=== PATIENT | male | born 1955 | race Caucasian/White ===

== ENCOUNTER 2017-04-28 08:34 | Outpatient (CLI) | payer BC ==
[2017-04-28 09:56] LABS: Hemoglobin 15.2 g/dL (14.0-18.0); Mean Corpuscular HGB CONC 33.1 g/dL (32.0-36.0); Mean Corpuscular Hemoglobin 31.9 pg (27.0-31.0); Mean Corpuscular Volume 96.4 fl (80.0-94.0); Platelet Count 125 thou/uL (130-400); RBC Distribution Width 12.3 % (11.5-14.5); Red Blood Cell (RBC) Count 4.78 mill/uL (4.70-6.10); White Blood Cell (WBC) Count 3.5 thou/uL (4.8-10.8)
[2017-04-28 09:59] LABS: Prothrombin Time 13.6 SEC (12.0-14.7)
[2017-04-28 10:00] LABS: PTT 30.9 SEC (22.9-36.1)
[2017-04-28 10:11] LABS: Anion Gap 12 mmol/L (10-20); BUN (Urea Nitrogen) 20 mg/dL (8.4-25.7); Calc. Creatinine Clearance 0 mL/min (70-130); Calcium 9.2 mg/dL (7.8-10.44); Carbon Dioxide 28 mmol/L (23-31); Chloride 106 mmol/L (98-107); Estimated GFR-MDRD 81; Glucose 88 mg/dL (80-115); Potassium 4.8 mmol/L (3.5-5.1); Sodium 141 mmol/L (136-145)
== END 2017-04-28 08:35 | disposition home or self-care (01) ==
LOC: LABBT 08:34
PROVIDERS: ATTEND Urology
DX: Z01.812 Encounter for preprocedural laboratory examination (principal); N21.0 Calculus in bladder
CPT/HCPCS: 80048; 85027; 85610; 85730

== ENCOUNTER 2017-04-29 06:02 | Day surgery (SDC) | payer BC ==
[2017-04-28 08:56] VITALS: BMI 31.8
[2017-04-29] MEDS ORDERED: Fentanyl 100 MCG/2 ML VIAL ONE (06:49)
[2017-04-29] MEDS ORDERED: CEFAZOLIN/Water 2 GM/20 ML SYRINGE ONE (07:24)
[2017-04-29] MEDS ORDERED: B & O ONE (08:38)
--- NOTE | 2017-04-29 09:08 | OP ---
DATE OF PROCEDURE: 04/29/2017 PREOPERATIVE DIAGNOSIS: Hematuria, bladder stones. POSTOPERATIVE DIAGNOSIS: Hematuria, bladder stones. PROCEDURE PERFORMED: Cystoscopy, laser lithotripsy and Ellik evacuation of numerous bladder stones a nd Beck catheter placement. SURGEON: Dr. Benji Hamilton ANESTHETIC: General. ESTIMATED BLOOD LOSS: Less than 50 mL DRAINS PLACED: A 20 Afghan Beck catheter with 20 mL in the balloon. FINDINGS: There are too numerous to count bladder stones, most of them less than 5 mm in size, but h e had 4 or 5 that were over 5 mm, largest probably about a cm in size. These were broken up with the laser and then all of these fragments were Elliked out. Other findings include no evidence of ureth ral stricture, very large trilobar BPH with intravesical growth, two ureteral orifices with clear eff lux which were visible with the rigid scope making a transurethral resection of his prostate possible in the future if needed. There was 1+ trabeculation, no evidence of bladder tumor, no foreign body or fistula, just numerous stones. OPERATIVE TECHNIQUE: After obtaining written and verbal consent from the patient after receiving IV antibiotics, he was taken to the operating suite. He was placed in the supine position on the [facility] ent table. PlexiPulses were placed on his lower extremities and turned on. He was given a general a nesthetic and oral obturator intubation. He was placed in the dorsal lithotomy position and sterilel y prepped and draped. Cystoscopy was performed with a 22-Afghan sheath. This was well lubricated an d passed under direct vision through the male urethra and into the urinary bladder with the aid of a 30-degree lens and video camera and monitor. The bladder was filled and emptied a number of times an d examined with both 30 and 70-degree lens. Using a 30-degree lens for guidance, we brought in a 500 microgram Holmium laser fiber and used to break up the larger of the stones and then we switched out to a 25-Afghan sheath which was replaced under direct vision with 30-degree lens and used the Ellik evacuator to Ellik evacuate the stones and stone fragments. We reinspected the bladder finding only a couple of smaller pieces remaining which we Elliked these out and then reinspected the bladder and did not see any further stones. At this point, the instruments were removed. Beck catheter was soha rilely inserted and inflated with 20 mL, was hand irrigated, it was clear. It was hooked up to a hiram inage bag attached to his leg and he was awakened, extubated, and taken by stretcher to the recovery room.
[2017-04-29] MEDS ORDERED: Ondansetron HCl/PF 4 MG/2 ML Vial ONE (12:38)
[2017-04-29] MEDS ORDERED: ePHEDrine/0.9% NaCl/PF SYRINGE 50 mg/10 ml ONE (12:38)
[2017-04-29] MEDS ORDERED: Dexamethasone 20 MG/5 ML VIAL ONE (12:38)
[2017-04-29] MEDS ORDERED: Propofol 200 MG/20 ML VIAL ONE (12:38)
[2017-04-29] MEDS ORDERED: PHENYLEPHRINE-NS 100 MCG/ML 10 ML SYRINGE ONE (12:38)
[2017-04-29] MEDS ORDERED: Lidocaine 1% PF 5 ML VIAL ONE (12:38)
--- NOTE | 2017-04-30 07:16 | EKG ---
Test Reason : PREOP Blood Pressure : / mmHG Vent. Rate : 070 BPM Atrial Rate : 070 BPM P-R Int : 184 ms QRS Dur : 096 ms QT Int : 390 ms P-R-T Axes : 059 012 043 degrees QTc Int : 421 ms Normal sinus rhythm Early repolarization Normal ECG No previous ECGs available Confirmed by DR. Len JULES MD ([id number]) on 04/30/2017 7:16:15 AM Referred By: ARMANDO Confirmed By:DR. Len JULES MD
[2017-05-04 17:13] LABS: CA Oxalate Dihydrate 15 % (.); CA Oxalate Monohydrate 50 % (.); CA Phosphate 15 % (.); Color Tan (.); Uric Acid 20 % (.)
== END 2017-04-29 10:40 | disposition home or self-care (01) ==
LOC: SDC 06:02
PROVIDERS: ATTEND Urology
DX: N21.0 Calculus in bladder (principal); E66.9 Obesity, unspecified; J30.2 Other seasonal allergic rhinitis; R01.1 Cardiac murmur, unspecified; Z68.31 Body mass index [BMI] 31.0-31.9, adult; Z98.890 Other specified postprocedural states; Z87.440 Personal history of urinary (tract) infections; Z87.442 Personal history of urinary calculi
CPT/HCPCS: 82365; 88300; 93005; 93010; J1100; J2001; J2405; J2704; J3010